=== PATIENT | female | born 1960 | race Native Hawaiian/Other Pacific Islander ===

== ENCOUNTER 2017-09-04 08:56 | Emergency (ER) | payer OTHER ==
[~2017-09-04] VITALS: Ht 160 cm; Wt 65.8 kg
[2017-09-04 09:10] VITALS: TEMP 97.5
[2017-09-04 11:33] LABS: PLATELET COUNT 239 K/uL (152-353)
[2017-09-04 11:44] LABS: POTASSIUM 3.9 mmol/L (3.6-5.2); SODIUM 137 mmol/L (136-145)
[2017-09-04 13:05] VITALS: BP 147/82
== END 2017-09-04 13:05 | disposition home or self-care (01) ==
LOC: ED 08:56
PROVIDERS: Emergency Medicine
DX: R07.89 Other chest pain (principal); R09.1 Pleurisy; Z87.42 Personal history of other diseases of the female genital tract
CPT/HCPCS: 36415; 80053; 82550; 84484; 85027; 85379; 93005; 99283

== ENCOUNTER 2017-10-28 10:33 | Outpatient (CLI) | payer OTHER | END 2017-10-28 19:57 | disposition home or self-care (01) | LOC: MRI 10:33 | DX: M50.21 Other cervical disc displacement, high cervical region (principal); M51.26 Other intervertebral disc displacement, lumbar region ==

== ENCOUNTER 2017-10-30 08:19 | Outpatient (CLI) | payer OTHER ==
[~2017-10-30] VITALS: Ht 154.9 cm; Wt 77.6 kg
== END 2017-10-30 22:03 | disposition home or self-care (01) ==
LOC: NM 08:19
DX: R07.89 Other chest pain (principal)
CPT/HCPCS: 93306; A9500; J2785

== ENCOUNTER 2017-11-06 08:08 | Outpatient (CLI) | payer OTHER | END 2017-11-06 23:28 | disposition home or self-care (01) | LOC: RESP 08:08 | DX: Z12.31 Encounter for screening mammogram for malignant neoplasm of breast (principal); R06.02 Shortness of breath; Z13.820 Encounter for screening for osteoporosis; M85.88 Other specified disorders of bone density and structure, other site | CPT/HCPCS: 94640; 94664 ==

== ENCOUNTER 2017-12-04 12:30 | Outpatient (CLI) | payer OTHER | END 2017-12-04 20:09 | disposition home or self-care (01) | LOC: MAMMO 12:30 | DX: N63.22 Unspecified lump in the left breast, upper inner quadrant (principal) ==

== ENCOUNTER 2018-02-02 10:25 | Outpatient (CLI) | payer OTHER | END 2018-02-02 21:13 | disposition home or self-care (01) | LOC: CT 10:25 | DX: R05 Cough (principal) ==

== ENCOUNTER 2018-12-11 23:18 | Emergency (ER) | payer OTHER ==
[~2018-12-11] VITALS: Ht 162.6 cm; Wt 77.1 kg
[2018-12-11] MEDS ORDERED: ROSU10TA PO (23:55)
[2018-12-11] MEDS ORDERED: CETI10TA PO (23:55)
[2018-12-11] MEDS ORDERED: META800T35 PO (23:56)
[2018-12-11] MEDS ORDERED: NEURONTIN 100M100 MG PO (23:56)
[2018-12-11] MEDS ORDERED: HYDR5TAB9 PO (23:58)
[2018-12-12] MEDS ORDERED: PANTOPRAZOLE 40MG TA PO (00:07)
[2018-12-12] MEDS ORDERED: NEURONTIN 100M100 MG PO (00:09)
[2018-12-12] MEDS ORDERED: SKELAXIN800 MG PO (00:09)
[2018-12-12] MEDS ORDERED: FIORICET 50-3001 CAP PO (00:10)
[2018-12-12] MEDS ORDERED: HYDR5TAB9 PO (00:10)
[2018-12-12] MEDS ORDERED: VALTREX500 MG PO (00:10)
[2018-12-12] MEDS ORDERED: LINZESS145 MCG PO (00:11)
[2018-12-12] MEDS ORDERED: BUPROPION HYDR150 M1 PO (00:11)
[2018-12-12] MEDS ORDERED: BUDE1AER5 INH (00:12)
[2018-12-12] MEDS ORDERED: FISH OI1 PO (00:13)
[2018-12-12] MEDS ORDERED: PROAIR HFA INH (00:13)
[2018-12-12 00:25] VITALS: BP 142/72; TEMP 97.9
== END 2018-12-12 00:25 | disposition home or self-care (01) ==
LOC: ED 23:18
DX: L29.8 Other pruritus (principal); B88.9 Infestation, unspecified
CPT/HCPCS: 99281

== ENCOUNTER 2019-03-29 19:00 | Emergency (ER) | payer OTHER ==
[~2019-03-29] VITALS: Ht 162.6 cm; Wt 70.3 kg
[~2019-03-29 19:00] MED LIST: BUDE1AER5 INH; BUPROPION HYDR150 M1 PO; CETI10TA PO; FIORICET 50-3001 CAP PO; FISH OI1 PO; HYDR5TAB9 PO; LINZESS145 MCG PO; META800T35 PO; NEURONTIN 100M100 MG PO; PANTOPRAZOLE 40MG TA PO; PROAIR HFA INH; ROSU10TA PO; SKELAXIN800 MG PO; VALTREX500 MG PO
[2019-03-29 21:29] VITALS: BP 121/88; TEMP 98.4
== END 2019-03-29 21:29 | disposition home or self-care (01) ==
LOC: ED 19:00
DX: J06.9 Acute upper respiratory infection, unspecified (principal); F17.210 Nicotine dependence, cigarettes, uncomplicated
CPT/HCPCS: 99282

== ENCOUNTER 2019-07-07 07:36 | Outpatient (CLI) | payer OTHER | END 2019-07-07 20:47 | disposition home or self-care (01) | LOC: MAMMO 07:36 | DX: Z12.31 Encounter for screening mammogram for malignant neoplasm of breast (principal) ==

== ENCOUNTER 2020-01-22 10:54 | Inpatient (IN) | payer OTHER ==
[2020-01-22] VITALS (12 sets, daily range): BP systolic 112–140; BP diastolic 61–91; TEMP 97.6–98.6; Ht 162.6 cm; Wt 49.6 kg
[~2020-01-22] VITALS: Ht 162.6 cm; Wt 49.6 kg
[2020-01-22 11:40] LABS: PLATELET COUNT 488 K/uL (152-353)
[2020-01-22 17:51] LABS: POTASSIUM 3.6 mmol/L (3.6-5.2)
[2020-01-23] VITALS (21 sets, daily range): BP systolic 100–153; BP diastolic 52–88; TEMP 98.7–99.3
[2020-01-23 07:02] LABS: PLATELET COUNT 199 K/uL (152-353)
[2020-01-23 13:21] LABS: POTASSIUM 3.8 mmol/L (3.6-5.2)
[2020-01-23 17:20] LABS: POTASSIUM 3.4 mmol/L (3.6-5.2)
[2020-01-24 04:14] VITALS: BP 105/60; TEMP 98.1
[2020-01-24 06:06] LABS: PLATELET COUNT 123 K/uL (152-353)
[2020-01-24 08:02] VITALS: BP 92/54; TEMP 98.2
[2020-01-24 11:59] VITALS: BP 92/49; TEMP 98.9
[2020-01-24 12:35] LABS: POTASSIUM 3.1 mmol/L (3.6-5.2)
[2020-01-24 16:00] VITALS: BP 113/62; TEMP 98.5
[2020-01-24 20:13] VITALS: BP 98/64; TEMP 98.3
[2020-01-25] VITALS: BP 112/62; TEMP 97.9
[2020-01-25 03:49] VITALS: BP 91/63; TEMP 98.7
[2020-01-25 06:39] LABS: POTASSIUM 3.7 mmol/L (3.6-5.2)
[2020-01-25 08:00] VITALS: BP 110/71; TEMP 98.2
[2020-01-25 12:00] VITALS: BP 104/60; TEMP 97.7
[2020-01-25] MEDS ORDERED: FAMOTIDINE20 MG PO (13:53)
[2020-01-25] MEDS ORDERED: INSU300I SC (13:54)
[2020-01-25 16:00] VITALS: BP 96/56; TEMP 98.2
== END 2020-01-25 19:25 | disposition home or self-care (01) | DRG 638 ==
LOC: ED 10:54 → ICU 13:50 → MED/SURG 13:50
PROVIDERS: Internal Medicine; Internal Medicine Endocrinology, Diabetes & Metabolism; ADMIT Family Medicine
DX: E11.10 Type 2 diabetes mellitus with ketoacidosis without coma (principal); E87.1 Hypo-osmolality and hyponatremia; N17.9 Acute kidney failure, unspecified; K21.9 Gastro-esophageal reflux disease without esophagitis; E78.49 Other hyperlipidemia; J44.9 Chronic obstructive pulmonary disease, unspecified; E87.6 Hypokalemia; F32.9 Major depressive disorder, single episode, unspecified; E11.42 Type 2 diabetes mellitus with diabetic polyneuropathy; D47.3 Essential (hemorrhagic) thrombocythemia; F41.8 Other specified anxiety disorders; R00.0 Tachycardia, unspecified; E78.1 Pure hyperglyceridemia
CPT/HCPCS: 36415; 36600; 80048; 80053; 80061; 81000; 82150; 82805; 82947; 83036; 83605; 83690; 83735; 84443; 84484; 85007; 85027; 87040; 93005; 96365; 96375; 99285; J0696; J1644; J1650; J1815; J2405; J3490

== ENCOUNTER 2020-02-25 13:47 | Outpatient (CLI) | payer OTHER ==
[~2020-02-25 13:47] MED LIST changes: +FAMOTIDINE20 MG PO; +INSU300I SC
== END 2020-02-25 23:17 | disposition home or self-care (01) ==
LOC: LAB 13:47
DX: J02.9 Acute pharyngitis, unspecified (principal); R05 Cough; J34.89 Other specified disorders of nose and nasal sinuses; R43.9 Unspecified disturbances of smell and taste
CPT/HCPCS: 87635; G2023; U0003

== ENCOUNTER 2020-03-13 12:53 | Emergency (ER) | payer OTHER ==
[~2020-03-13] VITALS: Ht 162.6 cm; Wt 52.2 kg
[2020-03-13 13:52] LABS: PLATELET COUNT 251 K/uL (152-353)
[2020-03-13 14:00] LABS: POTASSIUM 4.1 mmol/L (3.6-5.2)
[2020-03-13 17:05] VITALS: BP 145/60; TEMP 98.6
== END 2020-03-13 17:06 | disposition short-term general hospital (02) ==
LOC: ED 12:53
PROVIDERS: Emergency Medicine Emergency Medical Services
DX: R10.32 Left lower quadrant pain (principal); C22.9 Malignant neoplasm of liver, not specified as primary or secondary; Z20.828 Contact with and (suspected) exposure to other viral communicable diseases
CPT/HCPCS: 36415; 80053; 80074; 81000; 83605; 83690; 85027; 87040; 87635; 93005; 96360; 96375; 99284; J1170; J2405; Q9963; U0003

== ENCOUNTER 2020-03-22 03:58 | Emergency (ER) | payer OTHER ==
[~2020-03-22] VITALS: Ht 162.6 cm; Wt 52.2 kg
[2020-03-22 04:51] LABS: PLATELET COUNT 228 K/uL (152-353)
[2020-03-22 05:03] LABS: POTASSIUM 2.4 mmol/L (3.6-5.2)
[2020-03-22 06:46] VITALS: TEMP 98.3
[2020-03-22 06:55] LABS: POTASSIUM 3.5 mmol/L (3.6-5.2)
[2020-03-22 09:00] VITALS: BP 136/76
== END 2020-03-22 09:00 | disposition home or self-care (01) ==
LOC: ED 03:58
PROVIDERS: Emergency Medicine Emergency Medical Services
DX: E11.649 Type 2 diabetes mellitus with hypoglycemia without coma (principal); Z79.4 Long term (current) use of insulin
CPT/HCPCS: 36415; 80048; 80053; 82962; 83690; 85007; 85027; 96365; 96366; 96375; 99284; J7060